=== PATIENT | female | born 1945 | race Caucasian/White ===

== ENCOUNTER 2021-08-26 14:55 | Outpatient (CLI) | payer MEDICARE, SELFPAY ==
--- NOTE | ~2021-08-26 | MM_ITS ---
EXAMINATION: MM screening terese BI w karly HISTORY: Screening mammogram TECHNIQUE: Craniocaudal and mediolateral oblique 3-D tomosynthesis images were obtained and synthetic 2-D images were generated. CAD analysis was submitted and interpreted. COMPARISON: 01/07/2015, 08/03/2014 bilateral screening mammogram examinations BREAST PARENCHYMAL COMPOSITION: There are scattered areas of fibroglandular density. FINDINGS: Numerous bilateral benign calcifications, primarily secretory, left more numerous than righ t. There is no evidence of suspicious mass, calcification, or architectural distortion to suggest mal ignancy in either breast. There has been no suspicious interval change. IMPRESSION: 1. No mammographic evidence of malignancy. 2. Recommend routine screening mammography in one year. BI-RADS Category 2: Benign finding(s). Reviewed, dictated and finalized at location A. [employer]
--- NOTE | ~2021-08-26 | DEXA_ITS ---
Bone Density Report Name: Taylor Wooten Age: 76 Sex: Female Ethnicity: White Date of : 1945 Indication: postmenopausal; height loss; Referring Provider: Tashi, Maite Study: Bone densitometry was performed. Exam Date: August 26, 2021 Accession number: [id number] Bone Density: Region BMD T-score Z-score Classification AP Spine (L2, L3, L4) 0.984 -0.9 1.7 Normal Femoral Neck (Left) 0.560 -2.6 -0.5 Osteoporosis Total Hip (Left) 0.774 -1.4 0.4 Osteopenia Total Hip Bilateral Avg 0.779 -1.4 0.5 Osteopenia Femoral Neck (Right) 0.559 -2.6 -0.5 Osteoporosis Total Hip (Right) 0.783 -1.3 0.5 Osteopenia World Health Organization criteria for BMD impression classify patients as: Normal (T-score at or above -1.0), Osteopenia (T-score between -1.0 and -2.5), or Osteoporosis (T-score at or below -2.5). 10-year Fracture Risk: FRAX not reported because: Some T-score for Spine Total or Hip Total or Femoral Neck at or below -2.5 Previous Exams: Region Exam Age BMD T-score BMD Change BMD Change Date g/cm2 vs Baseline vs Previous AP Spine(L2, L3, L4) 08/26/2021 76 0.984 -0.9 -0.045(-4.4%)# -0.045(-4.4%)# 05/15/2002 57 1.029 -0.5 Total Hip(Left) 08/26/2021 76 0.774 -1.4 -0.279(-26.5%) -0.279(-26.5%) 05/15/2002 57 1.052 0.9 Total Hip(Right) 08/26/2021 76 0.783 -1.3 -0.273(-25.9%) -0.273(-25.9%) 05/15/2002 57 1.056 0.9 *Denotes significance at 95% confidence level, LSC for AP Spine = 0.022 g/cm2, LSC for Total Hip = 0.027 g/cm2 Clinical Information Provided by Patient: Patient maximum height was 64.5 No regular weight bearing exercise Onset of menses at age 14 Number of children 1 Impression: The patient has osteoporosis, based on the Left Femoral Neck T-score. No significant bone loss was observed. Discussion: INCREASED RISK OF FRACTURE. BONE DENSITY IS UNDESIRABLY LOW AT ONE OR MORE SKELETAL SITES, CONSISTENT WITH POSTMENOPAUSAL OSTEOPOROSIS. This patient's lowest T-score meets the World Health Organization's (WHO) criteria for osteoporosis at one or more sites (T-score -2.5 or below). In untreated patients, the risk of osteoporotic fracture increases approximately two-fold for each 1.0 SD decrease in T-score. Low bone density is not the only risk factor for fracture; also consider factors such as patient's age, frailty or poor health, risk of falling, risk of injury, previous osteoporotic fracture, family history of osteoporosis, cigar
== END 2021-08-26 14:56 | disposition home or self-care (01) ==
PROVIDERS: PCP Physician Assistant; Visit Provider Physician Assistant
DX: Z12.31 Encounter for screening mammogram for malignant neoplasm of breast (principal); Z78.0 Asymptomatic menopausal state; M81.0 Age-related osteoporosis without current pathological fracture
CPT/HCPCS: 77063; 77067; 77080

== ENCOUNTER → 2022-12-02 13:41 | Outpatient (CLI) | payer MEDICARE, SELFPAY ==
--- NOTE | ~2022-12-02 | CT_ITS ---
EXAMINATION: CT diagnostic chest w con DATE: 12/02/2022 14:18 INDICATION: Solitary pulmonary nodule TECHNIQUE: Computed tomography (CT) of the chest was performed with 75 cc Omnipaque 350 intravenous c ontrast. The dose-length product was 468.96 mGy-cm. Automated exposure control and iterative reconstr uction technique were employed. COMPARISON: Rib series dated 03/08/2018 FINDINGS: There is atherosclerosis of the aorta and coronary arteries. No significant pleural or christianne cardial effusion. There are calcified mediastinal lymph nodes, consistent with chronic granulomatous disease. There are multiple bilateral calcified pulmonary nodules. No focal airspace consolidation. N o endobronchial lesions. There is mild interlobular septal thickening in the lower lungs, likely upsetter helper rob. There are a few small bilateral pulmonary nodules measuring 3 mm or less, likely benign. Pacemak er leads are in expected position. No pneumothorax. Moderate thoracic spondylosis. There are calcifie d granulomas of the liver and spleen. There are nonobstructing bilateral renal stones. IMPRESSION: 1. Multiple small noncalcified pulmonary nodules measuring 3 mm or less, likely benign. Recommend fol low-up low dose CT chest in 12 months. 2: Mild peripheral interstitial lung disease, likely mild chronic interstitial fibrosis. 3: Nonobstructing bilateral nephrolithiasis. Reviewed, dictated and finalized at location A. [employer] TEACHER IMPRESSION: 1. Multiple small noncalcified pulmonary nodules measuring 3 mm or less, likely benign. Recommend follow-up low dose CT chest in 12 months. 2: Mild peripheral interstitial lung disease, likely mild chronic interstitial fibrosis. 3: Nonobstructing bilateral nephrolithiasis.
[2022-12-02 14:03] LABS: Estimated Glomerular Filt Rate > 60
== END ==
PROVIDERS: PCP Physician Assistant; Visit Provider Physician Assistant
DX: R91.8 Other nonspecific abnormal finding of lung field (principal); N20.0 Calculus of kidney; J84.9 Interstitial pulmonary disease, unspecified
CPT/HCPCS: 71260; Q9967

== ENCOUNTER → 2023-07-21 11:59 | Outpatient (CLI) | payer MEDICARE, SELFPAY ==
--- NOTE | ~2023-07-21 | CT_ITS ---
EXAMINATION:CT chest high resolution wo mn DATE: 07/21/2023 12:21 INDICATION: Other nonspecific abnormal finding in lung field. Pulmonary nodules. TECHNIQUE: Computed tomography (CT) of the chest was performed without intravenous contrast. Automate d exposure control and iterative reconstruction technique were employed. The dose-length product (DLP ) was 535.55 mGy-cm. COMPARISON: Chest CT 12/02/2022 FINDINGS: Calcified right lung nodules and calcified right hilar and mediastinal lymph nodes are cons istent with old granulomatous disease. There are a few scattered 2 mm nodules in the lungs. There is mild straightening paraspinal right lower limb. No pleural effusion. The heart size is normal. There are coronary artery calcifications. No pericardial effusion. There is a left chest wall pacer with le ads in the right atrium and right ventricle. Calcifications in the liver and spleen are consistent wi th old granulomatous disease. Partially visualized are stones in the kidneys measuring up to at least 8 mm in right kidney. There is moderate thoracic spondylosis and severe lumbar spondylosis. IMPRESSION: 1. Small pulmonary nodules, likely benign. Reviewed, dictated and finalized at location E.
== END ==
PROVIDERS: PCP Internal Medicine Pulmonary Disease; Visit Provider Internal Medicine Pulmonary Disease
DX: R91.8 Other nonspecific abnormal finding of lung field (principal)
CPT/HCPCS: 71250

== ENCOUNTER 2023-07-21 12:46 | Outpatient (CLI) | payer MEDICARE, SELFPAY ==
[2023-07-21 13:50] VITALS: PULSE 98; O2SAT 97
[2023-07-21 13:55] VITALS: PULSE 120; O2SAT 96
[2023-07-21 14:05] VITALS: PULSE 99; O2SAT 97
--- NOTE | 2023-07-21 14:14 | HOMEO2EVAL ---
Evaluation was performed at [facility] Home Oxygen Evaluation RC: Home Oxygen (O2) Evaluation Start: 07/21/23 14:13 Freq: Status: Active Protocol: RPE Activity Type Activity Date Activity User E-sign Co-sign Detail Recorded Client Recorded Date Recorded By Document 07/21/23 13:50 [email or web address] [email or web address] 07/21/23 14:14 DJO Document 07/21/23 13:55 [email or web address] [email or web address] 07/21/23 14:14 DJO Document 07/21/23 14:05 [email or web address] [email or web address] 07/21/23 14:14 DJO 07/21/23 07/21/23 07/21/23 13:50 13:55 14:05 Home O2 Evaluation [Oxygen] -Test Phase Resting Exercise Resting -Oxygen Delivery Room Air Room Air Room Air [Pulse Oximetry] -Pulse Oximetry (90-100 %) 97 96 97 [Pulse Rate] -Pulse Rate (60-100 beats/min) 98 120 H 99 [Evaluation] -Activity Tolerance Poor [Charges] -Treatment Charges O2 Evaluation - Outpatient
--- NOTE | 2023-07-21 15:54 | P.PCNPFT_ITS ---
PFT Procedure Performed PFT Procedure Performed Spirometry with Pre/Post Bronchodilator Plethysmography (Lung Vol) Diffusing Cap (DLCO) Flow Vol Loop PFT Interpretation This is a pulmonary function test with pre and post-bronchodilator spirometry, plethysmography and diffusing capacity. The test was performed and results interpreted in accordance with the 2019 and 2005 ATS/ERS Task Force guidelines respectively using the Global Lung Function Initiative-2012 reference equations. Patient demonstrated good effort and cooperation. Reproducibility criteria were met. The quality of the pre bronchodilator spirometry maneuver was Grade A and post bronchodilator spirometry maneuver was Grade A. Findings: Spirometry: The contour the inspiratory and expiratory flow tracing are normal. The pre bronchodilator FVC is 2.83 L, 104% predicted. The pre bronchodilator FEV1 is 2.29 L, 111% predicted. The pre bronchodilator FEV1: FVC ratio was 81%. The post bronchodilator FVC is 2.60 L, representing an 8% decrease. The post bronchodilator FEV1 is 2.21 L, representing a 4% decrease. The post bronchodila tor FEV1: FVC ratio is 85%. Plethysmography: The total lung capacity is 5.29 L, 102% predicted. The functional residual capacity is 2.13 L, 71% predicted. The residual volume is 2.10 L, 88% predicted. Diffusing capacity: The diffusing capacity unadjusted for hemoglobin and carboxyhemoglobin is 20.1, 100% predicted. The diffusing capacity adjusted for alveolar volume is 4.37, 106% predicted. Impression: The spirometry is normal without evidence of an obstructive abnormality. There is no significant improvement after inhaling a single dose of albuterol. The lung volumes are normal. The diffusing capacity is normal. There are no prior studies for comparison
== END 2023-07-21 12:47 | disposition home or self-care (01) ==
LOC: ANHPFT 12:47
PROVIDERS: PCP Internal Medicine Pulmonary Disease; Visit Provider Internal Medicine Pulmonary Disease
DX: J84.9 Interstitial pulmonary disease, unspecified (principal)
CPT/HCPCS: 94618

== ENCOUNTER 2025-02-20 10:48 | Outpatient (CLI) | payer MEDICARE, SELFPAY ==
--- NOTE | ~2025-02-20 | US_ITS ---
Limited Abdominal Sonogram: Real-time sonographic imaging of the right upper quadrant was performed. Clinical History: Elevated alkaline phosphatase Findings: The liver appears normal with no evidence of mass lesion or bile duct dilatation. Main por vicki vein demonstrates normal direction of flow. The gallbladder is well distended, and contains echog enic, shadowing gallstones. No gallbladder wall thickening. The common bile duct measures 3 mm. The visualized pancreas, aorta, and IVC are unremarkable. Impression: Cholelithiasis. Reviewed, dictated and finalized at location M. Impression: Cholelithiasis.
== END 2025-02-20 10:49 | disposition home or self-care (01) ==
LOC: MICIMG 10:49
PROVIDERS: PCP Physician Assistant; Visit Provider Physician Assistant
DX: R74.8 Abnormal levels of other serum enzymes (principal); K80.20 Calculus of gallbladder without cholecystitis without obstruction
CPT/HCPCS: 76705